=== PATIENT | female | born 1995 | race African-American/Black ===

== ENCOUNTER 2020-04-13 14:51 | Emergency (ER) | payer MEDICAID ==
[~2020-04-13] VITALS: Ht 182.9 cm; Wt 152.0 kg
[2020-04-13 16:06] VITALS: BP 112/72
== END 2020-04-13 16:08 | disposition home or self-care (01) ==
LOC: ER 14:51
DX: U07.1 COVID-19 (principal); F12.10 Cannabis abuse, uncomplicated; J45.909 Unspecified asthma, uncomplicated
CPT/HCPCS: 99283; C9803; U0003

== ENCOUNTER 2021-01-18 13:27 | Emergency (ER) | payer MEDICAID ==
[~2021-01-18] VITALS: Ht 182.9 cm; Wt 145.0 kg
[2021-01-18] MEDS ORDERED: BACITRACIN ZINC OINT UDPKT TOP ONE ×2 (14:45→15:30)
[2021-01-18] MEDS ORDERED: LIDOCAINE HCL/PF 1% 10 MG/ML 5ML VIAL INFIL ONE (14:45)
[2021-01-18] MEDS ORDERED: TRAMADOL 50MG TABLET PO ONE (14:45)
[2021-01-18] MEDS ORDERED: TETANUS, DIPHTHERIA, PERTUSSIS VAC/PF 0.5ML (>10YR OLD) IM ONE (14:45)
[2021-01-18] MEDS ORDERED: ACETAMINOPHEN 325MG TABLET PO ONE (14:45)
[2021-01-18 15:30] VITALS: BP 123/88
[2021-01-18] MEDS ORDERED: ONDANSETRON 4MG ODT PO ONE (15:45)
[2021-01-18] MEDS ORDERED: BO1 TP (16:14)
== END 2021-01-18 16:27 | disposition home or self-care (01) ==
LOC: ER 13:27
DX: S51.811A Laceration without foreign body of right forearm, initial encounter (principal); Y04.0XXA Assault by unarmed brawl or fight, initial encounter; Y93.89 Activity, other specified; Y92.89 Other specified places as the place of occurrence of the external cause; Y99.8 Other external cause status
CPT/HCPCS: 12002; 73130; 90471; 90715; 99284; A4217; J3490; Q0162; Z7610

== ENCOUNTER 2021-02-01 09:58 | Emergency (ER) | payer MEDICAID ==
[~2021-02-01] VITALS: Ht 182.9 cm; Wt 149.0 kg
[~2021-02-01 09:58] MED LIST: BO1 TP
[2021-02-01 10:34] VITALS: BP 126/87
== END 2021-02-01 11:39 | disposition home or self-care (01) ==
LOC: ER 09:58
DX: Z48.02 Encounter for removal of sutures (principal); J45.909 Unspecified asthma, uncomplicated; I10 Essential (primary) hypertension
CPT/HCPCS: 99281; J7040; Z7610